=== PATIENT | male | born 1955 ===

== ENCOUNTER 2023-11-02 11:31 | Emergency (ER) | payer BC ==
[2023-11-02] MEDS ORDERED: ONDANSETRON 4 MG/2 ML VIAL ONE (13:08)
[2023-11-02] MEDS ORDERED: MORPHINE SULFATE 4 MG/ML SYRINGE ONE (13:08)
== END 2023-11-02 16:00 | disposition left against medical advice (07) ==
LOC: EC 11:31
DX: R10.9 Unspecified abdominal pain (principal); Z94.4 Liver transplant status
CPT/HCPCS: 83880; 80053; 82150; 83690; 84484; 85025; 85610; 85730; 81003; 99283; 96374; 96375; J2270